=== PATIENT | female | born 1980 | race Two or more races ===

== ENCOUNTER 2019-02-10 16:07 | Emergency (ER) | payer SELFPAY ==
[~2019-02-10] VITALS: Ht 162.6 cm; Wt 109.0 kg
[2019-02-10 17:15] LABS: CLARITY URINE CLEAR (CLEAR); COLOR URINE YELLOW (YELLOW); KETONES URINE TRACE (NEGATIVE); LEUKOCYTE ESTERASE URINE NEGATIVE (NEGATIVE); NITRITE URINE NEGATIVE (NEGATIVE); OCCULT BLOOD URINE NEGATIVE (NEGATIVE); PROTEIN URINE NEGATIVE (NEGATIVE); SPECIFIC GRAVITY URINE 1.022 (1.005-1.030); UROBILINOGEN URINE 0.2 E.U./dL (0.2-1.0)
[2019-02-10] MEDS ORDERED: PIPERACILLIN/TAZ 3.375G PREMIX 50 ML IV ONE (17:15)
[2019-02-10] MEDS ORDERED: MORPHINE SULFATE 4 MG/ML CPJ (NOT FOR IM USE) IV ONE (17:15)
[2019-02-10] MEDS ORDERED: ONDANSETRON HCL 4MG/2ML INJ IV ONE (17:15)
[2019-02-10 17:55] LABS: HEMATOCRIT. 38.1 % (36.0-48.0); HEMOGLOBIN. 12.5 g/dL (12.0-16.0); MEAN CORPUSCULAR HEMOGLOBIN 27.9 pg (28.0-32.0); MEAN CORPUSCULAR VOLUME 85.3 fL (81.0-99.0); PLATELET 430 x1000/uL (130-400); RED BLOOD CELL COUNT 4.46 mill/uL (4.2-5.4); RED CELL DISTRIBUTION WIDTH 16.3 % (11.6-14.6)
[2019-02-10 17:57] LABS: CHLORIDE 108 mEq/L (98-107)
[2019-02-10] MEDS ORDERED: MAGNESIUM/ALUMINUM HYDROXIDE/SIMETHICONE 30ML UDC PO STA (18:30)
[2019-02-10] MEDS ORDERED: FAMOTIDINE 20MG TABLET PO ONE (18:30)
[2019-02-10] MEDS ORDERED: DICYCLOMINE HCL 10MG/ML 2ML AMP IM ONE (18:30)
[2019-02-10] MEDS ORDERED: VISCOUS LIDOCAINE 2% 15 ML UDC PO STA (18:30)
[2019-02-10 18:47] LABS: PROTHROMBIN TIME 10.2 sec (9.6-11.0)
[2019-02-10 18:54] LABS: PLATELET ESTIMATE SLIGHTLY INCREASED
[2019-02-10 18:57] VITALS: BP 132/71
== END 2019-02-10 19:12 | disposition home or self-care (01) ==
LOC: ER 16:07 → CANBEDREQ 23:40
DX: R10.31 Right lower quadrant pain (principal); R11.0 Nausea; N83.519 Torsion of ovary and ovarian pedicle, unspecified side; Z90.49 Acquired absence of other specified parts of digestive tract; Z98.51 Tubal ligation status; Z88.6 Allergy status to analgesic agent
CPT/HCPCS: 36415; 74176; 81003; 81025; 99284